=== PATIENT | male | born 1970 | race Hispanic/Latino ===

== ENCOUNTER 2017-08-15 22:46 | Emergency (ER) | payer OTHER | END 2017-08-15 23:40 | disposition home or self-care (01) | LOC: EDH 22:46 | DX: S60.211A Contusion of right wrist, initial encounter (principal); Z72.0 Tobacco use; W22.8XXA Striking against or struck by other objects, initial encounter; Y93.89 Activity, other specified; Y92.89 Other specified places as the place of occurrence of the external cause; Y99.8 Other external cause status | CPT/HCPCS: 73110 ==